=== PATIENT | male | born 1975 | race Caucasian/White ===

== ENCOUNTER 2023-04-27 06:59 | Day surgery (SDC) | payer BC ==
[~2023-04-27] VITALS: Ht 177.8 cm; Wt 75.3 kg
[~2023-04-27 06:59] MED LIST: CENT1TAB2 PO; TERB250T91 PO; VITA500C24 PO; [UNRECOGNIZED DRUG - CODE] PO
[2023-04-27] MEDS: NS 1,000 ML IV ONE (07:24)
[2023-04-27 08:57] VITALS: BP 95/69; TEMP 97.4; O2SAT 100
== END 2023-04-27 08:59 | disposition home or self-care (01) ==
LOC: M OPP 06:59
PROVIDERS: ATTEND Surgery
DX: Z12.11 Encounter for screening for malignant neoplasm of colon (principal); K63.5 Polyp of colon; K31.89 Other diseases of stomach and duodenum; K21.00 Gastro-esophageal reflux disease with esophagitis, without bleeding; K30 Functional dyspepsia; Z88.0 Allergy status to penicillin